=== PATIENT | male | born 1950 | race African-American/Black ===

== ENCOUNTER 2024-07-17 13:17 | Emergency (ER) | payer OTHER ==
[2024-07-17 13:24] VITALS: BMI 29.9
[2024-07-17 14:32] LABS: EPI CELLS 21 /uL (0-25.1); HYALINE CASTS 1 /uL (0-3.1); URINE APPEARANCE CLEAR; URINE BACTERIA 6 /uL (0-1359); URINE BILIRUBIN NEGATIVE (NEGATIVE); URINE COLOR DK YELLOW; URINE GLUCOSE (UA) NEGATIVE (NEGATIVE); URINE KETONE TRACE (NEGATIVE); URINE LEUK ESTERASE 1+ (NEGATIVE); URINE NITRITE NEGATIVE (NEGATIVE); URINE PROTEIN TRACE (NEGATIVE); URINE RBC 21 /uL (0-23.9); URINE WBC 158 /uL (0-25.8)
[2024-07-17] MEDS ORDERED: IBUPROFEN 400 MG TABLET (FP) PO ONE (15:12)
[2024-07-17] MEDS: IBUPROFEN 400 MG TABLET (FP) PO ONE (15:18)
[2024-07-17 15:57] VITALS: BP 110/78; PULSE 72; RESP 19; TEMP 97.8
== END 2024-07-17 15:56 | disposition home or self-care (01) ==
LOC: JER 13:17
DX: N39.0 Urinary tract infection, site not specified (principal); R30.0 Dysuria; R11.0 Nausea; R39.198 Other difficulties with micturition; R50.9 Fever, unspecified
CPT/HCPCS: 81003; 87086; 99283-25